=== PATIENT | male | born 1980 ===

== ENCOUNTER 2019-03-20 13:25 | Outpatient (REF) | payer OTHER, SELFPAY ==
[2019-03-24 13:17] LABS: Chlamydia Result Negative; GC Result Negative; Specimen Description URINE
== END 2019-03-20 13:45 ==
LOC: NCHCN 13:25
PROVIDERS: PCP Family Medicine; Visit Provider Registered Nurse
DX: Z11.3 Encounter for screening for infections with a predominantly sexual mode of transmission (principal)
CPT/HCPCS: 87491; 87591

== ENCOUNTER 2020-10-15 15:43 | Outpatient (REF) | payer OTHER, SELFPAY ==
[2020-10-15 21:08] LABS: Calculated LDL 158 mg/dL (<100); Cholesterol 253 mg/dL (<200); HDL Cholesterol 79 mg/dL (40-60); Triglyceride 84 mg/dL (<150)
[2020-10-18 10:51] LABS: Hepatitis C Ab w Rflx HCV PCR Negative (Negative)
[2020-10-18 11:08] LABS: HIV-1/2 Ag & Ab Screen Negative (Negative)
[2020-10-18 14:41] LABS: Chlamydia Result Negative (Negative); GC Result Negative (Negative)
== END 2020-10-15 15:44 | disposition home or self-care (01) ==
LOC: NCHCN 15:43
PROVIDERS: PCP Family Medicine; Visit Provider Registered Nurse
DX: Z00.00 Encounter for general adult medical examination without abnormal findings (principal); Z11.59 Encounter for screening for other viral diseases; Z11.3 Encounter for screening for infections with a predominantly sexual mode of transmission; Z11.4 Encounter for screening for human immunodeficiency virus [HIV]; Z13.220 Encounter for screening for lipoid disorders
CPT/HCPCS: 80061; 86803; 87389; 87491; 87591

== ENCOUNTER 2021-01-07 08:32 | Outpatient (REF) | payer OTHER, SELFPAY ==
[2021-01-10 10:06] LABS: Hepatitis C Ab w Rflx HCV PCR Negative (Negative)
[2021-01-10 11:32] LABS: Syphilis Serology (RPR) Negative (Negative)
[2021-01-10 14:00] LABS: HIV-1/2 Ag & Ab Screen Negative (Negative)
[2021-01-11 14:58] LABS: Chlamydia Result Negative (Negative); GC Result Negative (Negative)
[2021-01-11 17:24] LABS: Chlamydia amplified RNA Negative (Negative); N gonorrhoeae amplified RNA Negative (Negative); Source THROAT
== END 2021-01-09 15:27 | disposition home or self-care (01) ==
LOC: NCHCN 08:32
PROVIDERS: PCP Family Medicine; Visit Provider Registered Nurse
DX: Z11.3 Encounter for screening for infections with a predominantly sexual mode of transmission (principal); Z11.59 Encounter for screening for other viral diseases; Z11.4 Encounter for screening for human immunodeficiency virus [HIV]
CPT/HCPCS: 86803; 87389; 87491; 87591; 86592

== ENCOUNTER 2023-07-16 15:03 | Outpatient (REF) | payer BC, SELFPAY ==
[2023-07-16 14:42] LABS: HCT 42.2 % (40.0-50.0); HGB 13.9 g/dL (13.5-17.5); MCH 28.3 pg (27.0-33.0); MCHC 32.9 % (32.0-36.0); MCV 86 fL (80-95); MPV 11.7 fL (8.0-11.0); Platelet Count 268 10^3/uL (130-400); RBC 4.91 10^6/uL (4.36-5.78); RDW 12.3 % (11.8-14.1); RDW-SD 38.7 fL; WBC 4.43 10^3/uL (4.4-10.8)
[2023-07-16 15:01] LABS: ALT 26 U/L (16-63); AST 22 U/L (15-37); Albumin 3.7 g/dL (3.4-5.0); Alkaline Phosphatase 46 U/L (46-116); Anion Gap 7.4 mmol/L (3-11); BUN 19 mg/dL (7-18); Bilirubin, Total 0.5 mg/dL (0.2-1.0); CO2 27.6 mmol/L (21.0-32.0); CREATININE 1.4 mg/dL (0.70-1.30); Calcium 9.1 mg/dL (8.5-10.1); Calculated LDL 153 mg/dL (<100); Chloride 106 mmol/L (98-107); Cholesterol 231 mg/dL (<200); Estimated GFR 63.17 (mL/min/1.73m2); Glucose 92 mg/dL (74-106); HDL Cholesterol 54 mg/dL (40-60); Potassium 4.1 mmol/L (3.5-5.1); Sodium 141 mmol/L (136-145); Total Protein 7.4 g/dL (6.4-8.2); Triglyceride 122 mg/dL (<150)
--- OUTSIDE RECORDS SUMMARY | 2023-07-16 15:05 | XMS_ITS | CCD ---
Author Name Unknown Address [address] [place] [address] [phone] Organization Unknown Address [address] [place] [address] [phone] Care Team Providers Care Wellness Specialist Name Role Phone NABIL LECHUGA Attending Physician [phone] NABIL LECHUGA Rounding (Secondary) Physician [phone] Vital Signs Unknown or Not Available. Allergies Unknown or Not Available. Procedures Unknown or Not Available. History of Immunizations Unknown or Not Available. Problems Unknown or Not Available. Results Unknown or Not Available. Active Medications Unknown or Not Available. Medications Administered During Visit Unknown or Not Available. Encounters Encounter Diagnosis Diagnosis Code Start Date Left lower quadrant pain [id number] Social History Unknown or Not Available. Patient Decision Aids Unknown or Not Available. Discharge Instructions You were admitted to [facility] on 03/20/2022 09:43 with a principal diagnosis of Left lower quadrant pain You were discharged from [facility] on 03/20/2022 00:00 Should you have any questions prior to discharge, please contact a member of your healthcare team. If you have left the hospital and have any questions, please contact your primary care physician. Chief Complaint and Reason For Visit Unknown or Not Available. Function Status Unknown or Not Available. Plan of Care Unknown or Not Available. Referral/Transition of Care Unknown or Not Available.
== END 2023-07-16 15:04 | disposition home or self-care (01) ==
LOC: NCHCN 15:03
PROVIDERS: PCP Family Medicine; Visit Provider Family Medicine
DX: Z00.00 Encounter for general adult medical examination without abnormal findings (principal); Z13.220 Encounter for screening for lipoid disorders; Z13.0 Encounter for screening for diseases of the blood and blood-forming organs and certain disorders involving the immune mechanism; Z13.228 Encounter for screening for other metabolic disorders
CPT/HCPCS: 80053; 80061; 85027